=== PATIENT | female | born 1950 | race Caucasian/White ===

== ENCOUNTER → 2021-12-23 | Outpatient (CLI) | payer OTHER | LOC: MRI 09:31 → CT 11:30 | DX: R26.2 Difficulty in walking, not elsewhere classified (principal); R41.3 Other amnesia; R42 Dizziness and giddiness; H93.19 Tinnitus, unspecified ear; H81.90 Unspecified disorder of vestibular function, unspecified ear; R90.82 White matter disease, unspecified | CPT/HCPCS: 36415; 70496; 70553; 82565; 84520; A9577; Q9967 ==